=== PATIENT | male | born 1935 | race African-American/Black ===

== ENCOUNTER 2022-07-04 10:11 | Emergency (ER) | payer OTHER ==
[2022-07-04 10:23] VITALS: RESP 18; TEMP 98.4; BMI 39.3
[2022-07-04 12:20] LABS: BASO % 2.4 % (0-2.0); EOS % 3.1 % (0-4.5); HEMATOCRIT 34.1 % (35.4-49); HEMOGLOBIN 11.7 GM/dL (11.7-16.9); LYMPH % 25.1 % (8-40); MCHC 34.4 g/dl (32.0-35.9); MEAN CELL VOLUME 90.4 fl (80-96); MEAN PLT VOLUME 7.4 fl (7.5-11.1); NEUT % 57.4 % (42.8-82.8); PLATELET COUNT 417 10^3/uL (134-434); RBC 3.77 M/mm3 (4.00-5.60); RDW 13.8 % (11.9-15.9); WHITE BLOOD COUNT 6.2 K/mm3 (4.0-10.0)
[2022-07-04 13:13] LABS: ALBUMIN 3.8 g/dl (3.4-5.0); CALCIUM 9.7 mg/dL (8.5-10.1)
[2022-07-04 13:14] LABS: BLOOD UREA NITROGEN 19.2 mg/dL (7-18)
[2022-07-04 13:16] LABS: CREATININE 1.5 mg/dL (0.55-1.3)
[2022-07-04 13:18] LABS: BILIRUBIN,TOTAL 0.8 mg/dL (0.2-1); TOT PROT 7.3 g/dl (6.4-8.2)
[2022-07-04 13:21] LABS: N-TERMINAL BNP 1340.6 pg/ml (5-450)
[2022-07-04 16:57] VITALS: BP 145/68; PULSE 78
== END 2022-07-04 16:00 | disposition left against medical advice (07) ==
LOC: JER 10:11
DX: M79.89 Other specified soft tissue disorders (principal); R79.89 Other specified abnormal findings of blood chemistry
CPT/HCPCS: 0241U-QW; 36415; 71045-TC-FY; 80053; 83880; 85025; 93005; 93010; 93970-TC; 99285-25